=== PATIENT | male | born 1995 | race Caucasian/White ===

== ENCOUNTER 2016-12-19 10:23 | Emergency (ER) | payer BC ==
[~2016-12-19] VITALS: Ht 182.9 cm; Wt 106.7 kg
[2016-12-19 10:31] VITALS: TEMP 36.9; Ht 182.9 cm; Wt 106.7 kg
--- NOTE | 2016-12-19 11:18 | DIAGNOSTIC IMAGING REPORT ---
MAXILLOFACIAL CT CT DOSE: 693.09 mGy.cm HISTORY: L facial/mandible pain TECHNIQUE: Multiaxial CT images of the maxillofacial region were performed and reformatted in the coronal plane without the use of contrast. A dose lowering technique was utilized adhering to the principles of ALARA. COMPARISON: None. FINDINGS: The visualized cervical spine, skull base, pterygoid plates, nasal bones, lamina papyracea, orbital floors, mandible, and zygomatic arches are intact. No fractures. The orbits are unremarkable. Mild mucosal thickening within the paranasal sinuses. Right nasal septal deviation with a right-sided nasal spur. The mastoid air cells are clear. Bilateral palatine tonsil hypertrophy. IMPRESSION: No fractures within the maxillofacial region. Bilateral palatine tonsil hypertrophy. Electronically signed by: Gerardo Garcia M.D. 12/19/2016 11:16 AM Dictated Date/Time: 12/19/2016 11:11 AM
[2016-12-19 11:52] VITALS: BP 147/86; PULSE 60; O2SAT 98
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
== END 2016-12-19 11:53 | disposition home or self-care (01) ==
LOC: C.EDB 10:25 → C.EDC 11:53
DX: S00.83XA Contusion of other part of head, initial encounter (principal); W51.XXXA Accidental striking against or bumped into by another person, initial encounter; Y93.01 Activity, walking, marching and hiking; Y99.8 Other external cause status